=== PATIENT | female | born 1995 | race Caucasian/White ===

== ENCOUNTER 2017-05-25 17:07 | Emergency (ER) | payer SELFPAY ==
[2017-05-25 17:11] VITALS: BP 122/78; PULSE 105; TEMP 100.6; BMI 20.2
--- NOTE | 2017-05-25 17:34 | PDOC ---
History of Present Illness - General Chief Complaint: Urinary Problem Stated Complaint: PAIN, ACUTE History Source: Patient Exam Limitations: No Limitations Past History - Travel Traveled outside of the country in the last 30 days: No Close contact w/someone who was outside of country & ill: No - Past Medical History Allergies/Adverse Reactions: Allergies Allergy/AdvReac Type Severity Reaction Status Date / Time No Known Allergies Allergy Verified 05/25/17 17:11 Home Medications: Ambulatory Orders Iron 1 tab PO TID 07/25/15 Asthma: No Cancer: No Cardiac Disorders: No Diabetes: No HTN: No Seizures: No Thyroid Disease: No - Psycho/Social/Smoking Cessation Hx Anxiety: No Suicidal Ideation: No Smoking History: Never smoked Have you smoked in the past 12 months: No Hx Alcohol Use: No Drug/Substance Use Hx: No Substance Use Type: None Hx Substance Use Treatment: No Review of Systems - Review of Systems Able to Perform ROS?: Yes Is the patient limited Setswana proficient: Yes Constitutional: Yes: Symptoms Reported, See HPI *Physical Exam - Vital Signs Last Vital Signs Temp Pulse Resp BP Pulse Ox 100.6 F H 105 H 20 122/78 99 05/25/17 17:07 05/25/17 17:07 05/25/17 17:07 05/25/17 17:07 05/25/17 17:07
--- NOTE | 2017-05-25 17:40 | PDOC ---
History of Present Illness - General Chief Complaint: Urinary Problem Stated Complaint: PAIN, ACUTE Time Seen by Provider: 05/25/17 17:31 History Source: Patient Exam Limitations: No Limitations - History of Present Illness Initial Comments: 05/25/17 18:05 My chief complaint: Urinary frequency, urgency, chills and painful urination History of present illness: Patient is a 21-year-old female with no significant medical history here today complaining of urinary frequency, urgency, and dysuria with chills, lateral flank pain 4 days. Patient had did not realize that she had a temperature until she came here. She also reports having slight nausea 3 days ago and yesterday. Patient denies any vaginal symptoms. Patient is sexually active with the same partner. Patient is on Depo-Provera. Timing/Duration: getting worse Severity: moderate Associated Symptoms: reports: fever/chills, other (4 days, urinary frequency, urgency, dysuria) Past History - Past Medical History Allergies/Adverse Reactions: Allergies Allergy/AdvReac Type Severity Reaction Status Date / Time No Known Allergies Allergy Verified 05/25/17 17:11 Home Medications: Ambulatory Orders Cephalexin Monohydrate [Keflex -] 500 mg PO Q8H #29 capsule 05/25/17 Asthma: No Cancer: No Cardiac Disorders: No Diabetes: No HTN: No Seizures: No Thyroid Disease: No - Psycho/Social/Smoking Cessation Hx Anxiety: No Suicidal Ideation: No Smoking History: Never smoked Have you smoked in the past 12 months: No Hx Alcohol Use: No Drug/Substance Use Hx: No Substance Use Type: None Hx Substance Use Treatment: No Review of Systems - Review of Systems Is the patient limited Luxembourgish proficient: Yes Constitutional: Yes: Chills, Fever HEENTM: No: Symptoms Reported Respiratory: No: Symptoms reported Cardiac (ROS): No: Symptoms Reported ABD/GI: No: Symptoms Reported : Yes: Dysuria, Frequency, Urgency. No: Discharge, Hematuria, Incontinence Musculoskeletal: Yes: Back Pain (b/l CVA tenderness) *Physical Exam - Vital Signs Last Vital Signs Temp Pulse Resp BP Pulse Ox 100.6 F H 105 H 20 122/78 99 05/25/17 17:07 05/25/17 17:07 05/25/17 17:07 05/25/17 17:07 05/25/17 17:07 - Physical Exam General Appearance: Yes: Appropriately Dressed Respiratory/Chest: positive: Lungs Clear, Normal Breath Sounds. negative: Chest Tender, Respiratory Distress Cardiovascular: positive: Regular Rhythm, Regular Rate, S1, S2 Gastrointestinal/Abdominal: positive: Normal Bowel Sounds, Soft. negative: Tender, Organomegaly, Distended, Guarding, Rebound, Tenderness, Hepatomegaly, Spleenomegaly Musculoskeletal: positive: CVA Tenderness (R), CVA Tenderness (L) Integumentary: positive: Normal Color Neurologic: positive: Alert, Normal Response Medical Decision Making - Medical Decision Making 05/25/17 18:11 Patient is a 21-year-old female with no significant medical history here today complaining of urinary frequency, urgency, and dysuria with chills, lateral flank pain 4 days. Patient had did not realize that she had a temperature until she came here. She also reports having slight nausea 3 days ago and yesterday. Patient denies any vaginal symptoms. Patient is sexually active with the same partner. Patient is on Depo-Provera. Symptoms are most probable due to pyelonephritis. R/O UTI R/O PYELONEPHRITIS PLAN: U/A URINE C & S CHLAMYDIA/GONORRHEA AMPLIFICATION ACETAMINOPHEN 1000MG PO BACTRIM DS ONE TAB NOW THAN BID FOR 14 DAYS 05/25/17 18:54 Laboratory Tests 05/25/17 05/25/17 16:24 17:30 Urine Color Yellow Urine Appearance Slcloudy Urine pH 6.0 Ur Specific [place] Pending Urine Protein Negative Urine Glucose (UA) Negative Urine Ketones Negative Urine Blood 2+ H Urine Nitrite Negative Urine Bilirubin Negative Urine Urobilinogen Negative Ur Leukocyte Esterase 3+ H Urine RBC 20 Urine WBC 98 Ur Epithelial Cells Rare Urine Bacteria Moderate Hyaline Casts 3 Urine Mucus Few Urine HCG, Qual Negative *DC/Admit/Observation/Transfer Diagnosis at time of Disposition: Pyelonephritis - Discharge Dispostion Disposition: HOME Condition at time of disposition: Stable - Patient Instructions Additional Instructions: Follow-up with your primary care provider next week for further evaluation Called the lab line for results of pending labs that were done today Return to emergency room if symptoms worsen or new symptoms develop Take acetaminophen as needed as directed by egg producer for fever or ibuprofen as directed by egg producer for fever or pain Patient voiced understanding of discharge instructions and all questions were answered Thank you for choosing to come to [facility] for your acute medical issues.
[2017-05-25] MEDS ORDERED: ACETAMINOPHEN 500 MG TABLET (FP) PO ONE (17:52)
[2017-05-25 17:54] LABS: URINE APPEARANCE SLCLOUDY; URINE BILIRUBIN NEGATIVE (NEGATIVE); URINE BLOOD 2+ (NEGATIVE); URINE COLOR YELLOW; URINE GLUCOSE (UA) NEGATIVE (NEGATIVE); URINE KETONE NEGATIVE (NEGATIVE); URINE NITRITE NEGATIVE (NEGATIVE); URINE PROTEIN NEGATIVE (NEGATIVE); URINE UROBILINOGEN NEGATIVE mg/dL (0.2-1.0)
[2017-05-25] MEDS ORDERED: ACETAMINOPHEN 500 MG TABLET (FP) ONE (17:57)
[2017-05-25 18:00] LABS: URINE LEUK ESTERASE 3+ (NEGATIVE)
[2017-05-25 18:03] LABS: URINE BACTERIA MODERATE /hpf (NONE SEEN); URINE HYALINE CAST 3 /lpf; URINE MUCUS FEW; URINE RBC 20 /hpf (0-3); URINE WBC 98 /hpf (3-5)
[2017-05-25] MEDS ORDERED: CEPHALEXIN MONOHYDRATE 500 MG CAPSULE (UD) PO ONE (19:01)
[2017-05-25] MEDS ORDERED: CEPHALEXIN MONOHYDRATE 500 MG CAPSULE (UD) ONE (19:03)
== END 2017-05-25 19:17 | disposition home or self-care (01) ==
LOC: JERFT 17:07
DX: N12 Tubulo-interstitial nephritis, not specified as acute or chronic (principal)
CPT/HCPCS: 36415; 81003; 81015; 84703; 87086; 87186; 87491; 87591; 99281-25

== ENCOUNTER 2017-10-28 10:19 | Emergency (ER) | payer SELFPAY ==
[2017-10-28 10:23] VITALS: BP 110/77; TEMP 99.6; BMI 15.2
--- NOTE | 2017-10-28 11:51 | PDOC ---
History of Present Illness - General Chief Complaint: Respiratory Stated Complaint: FLU LIKE SYMPTOMS Time Seen by Provider: 10/28/17 11:42 - History of Present Illness Initial Comments: 10/28/17 11:48 This is a 22-year-old fully immunized female without significant past medical history presents emergency 2 days of fever, dry cough, runny nose, body aches, headache. Patient states "everybody" in the house experiencing similar symptoms. Patient denies any chest pain, shortness of breath, nausea, vomiting, diarrhea. Patient doesn't have a primary care doctor. Past History - Past Medical History Allergies/Adverse Reactions: Allergies Allergy/AdvReac Type Severity Reaction Status Date / Time No Known Allergies Allergy Verified 10/28/17 10:23 Home Medications: Ambulatory Orders Oseltamivir Phosphate [Tamiflu -] 75 mg PO BID #10 capsule 10/28/17 Asthma: No Cancer: No Cardiac Disorders: No COPD: No Diabetes: No HTN: No Seizures: No Thyroid Disease: No Other medical history: MOTHER DENIES MEDICAL HX - Suicide/Smoking/Psychosocial Hx Smoking History: Never smoked Have you smoked in the past 12 months: No Hx Alcohol Use: No Drug/Substance Use Hx: No Substance Use Type: None Hx Substance Use Treatment: No Review of Systems - Review of Systems Able to Perform ROS?: Yes Is the patient limited Puerto Rican proficient: No Constitutional: Yes: See HPI HEENTM: Yes: See HPI Respiratory: Yes: See HPI Cardiac (ROS): No: Symptoms Reported ABD/GI: No: Symptoms Reported : No: Symptoms Reported Musculoskeletal: Yes: See HPI Integumentary: No: Symptoms Reported Neurological: No: Symptoms reported *Physical Exam - Vital Signs Last Vital Signs Temp Pulse Resp BP Pulse Ox 99.6 F 120 H 18 110/77 97 10/28/17 10:21 10/28/17 10:21 10/28/17 10:21 10/28/17 10:21 10/28/17 10:21 - Physical Exam General Appearance: Yes: Appropriately Dressed. No: Apparent Distress HEENT: positive: TMs Normal, Pharyngeal Erythema, Rhinorrhea. negative: Tonsillar Exudate, Tonsillar Erythema, Sinus Tenderness Neck: positive: Trachea midline, Supple Respiratory/Chest: positive: Lungs Clear, Normal Breath Sounds. negative: Respiratory Distress, Accessory Muscle Use Cardiovascular: positive: Regular Rhythm, Tachycardia. negative: Murmur Gastrointestinal/Abdominal: positive: Normal Bowel Sounds, Soft. negative: Tender Musculoskeletal: positive: Normal Inspection. negative: CVA Tenderness Integumentary: positive: Normal Color, Dry, Warm Neurologic: positive: Fully Oriented, Alert, Normal Mood/Affect, Motor Strength 5/5 Medical Decision Making - Medical Decision Making 10/28/17 11:48 A/P: 22-year-old female with 2 days of fevers, headaches, rhinorrhea, body aches. Patient with multiple sick contacts. Oropharynx with pharyngeal erythema no exudates or tonsillar erythema noted. TMs within normal limits. Lungs clear to auscultation bilaterally. S1 and S2 present. No murmur rub or gallop. Diagnosis influenza. I'll treat the patient with Tamiflu 75 mg twice a day for 5 days. I discussed the physical exam findings, ancillary test results and final diagnoses with the patient. I answered all of the patient's questions. The patient was satisfied with the care received and felt comfortable with the discharge plan and treatment plan. The patient will call []within [] hours to arrange follow-up and will return to the Emergency Department with any new, persistant or worsening symptoms. *DC/Admit/Observation/Transfer Diagnosis at time of Disposition: Influenza - Discharge Dispostion Disposition: HOME Condition at time of disposition: Stable Admit: No - Prescriptions Prescriptions: Oseltamivir Phosphate [Tamiflu -] 75 mg PO BID #10 capsule - Referrals Referrals: He Lei MD [Staff Physician] - - Patient Instructions Additional Instructions: Rest, drink lots of fluids: Teas, water, soups, Pedialyte Saltwater gargles Steamy showers/seem to face break up mucus Avoid contact with others until fevers and cough resolved Lots of handwashing and good hygiene Continue [id number] medications for symptomatic relief Tylenol or Motrin for fever and pain Tamiflu 75mg twice a day for 5 days. Followup with private physician in one to 2 days as needed Return to emergency department for worsened symptoms, fevers, dehydration - Post Discharge Activity Forms/Work/School Notes: Back to Work
[2017-10-28 12:06] VITALS: PULSE 10
== END 2017-10-28 12:14 | disposition home or self-care (01) ==
LOC: JERFT 10:19
DX: J11.1 Influenza due to unidentified influenza virus with other respiratory manifestations (principal)
CPT/HCPCS: 99281-25

== ENCOUNTER 2018-01-04 17:39 | Emergency (ER) | payer OTHER ==
[2018-01-04 17:44] VITALS: BP 127/69; PULSE 108; TEMP 98.9; BMI 19.9
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
== END 2018-01-04 18:46 | disposition home or self-care (01) ==
LOC: JERFT 17:39
DX: S00.83XA Contusion of other part of head, initial encounter (principal); Y04.2XXA Assault by strike against or bumped into by another person, initial encounter; Y93.89 Activity, other specified; Y92.89 Other specified places as the place of occurrence of the external cause; Y99.8 Other external cause status; Y07.9 Unspecified perpetrator of maltreatment and neglect
CPT/HCPCS: 99281-25

== ENCOUNTER 2018-04-13 20:48 | Emergency (ER) | payer OTHER ==
[2018-04-13 21:18] VITALS: BP 107/57; PULSE 75; TEMP 98.7; BMI 20.5
--- NOTE | 2018-04-13 22:38 | PDOC ---
History of Present Illness - General Chief Complaint: Urinary Problem Stated Complaint: PAIN Time Seen by Provider: 04/13/18 22:37 Past History - Past Medical History Allergies/Adverse Reactions: Allergies Allergy/AdvReac Type Severity Reaction Status Date / Time No Known Allergies Allergy Verified 01/04/18 17:44 Home Medications: Ambulatory Orders NK [No Known Home Medication] 01/04/18 Asthma: No Cancer: No Cardiac Disorders: No COPD: No Diabetes: No HTN: No Seizures: No Thyroid Disease: No - Suicide/Smoking/Psychosocial Hx Smoking History: Never smoked Have you smoked in the past 12 months: No Information on smoking cessation initiated: No Hx Alcohol Use: No Drug/Substance Use Hx: No Substance Use Type: None Hx Substance Use Treatment: No *Physical Exam - Vital Signs Last Vital Signs Temp Pulse Resp BP Pulse Ox 98.7 F 75 20 107/57 99 04/13/18 21:16 04/13/18 21:16 04/13/18 21:16 04/13/18 21:16 04/13/18 21:16
[2018-04-13] MEDS ORDERED: PHENAZOPYRIDINE HCL 100 MG TABLET (FP) PO ONE (23:07)
--- NOTE | 2018-04-13 23:08 | PDOC ---
History of Present Illness - General Chief Complaint: Urinary Problem Stated Complaint: PAIN Time Seen by Provider: 04/13/18 22:37 History Source: Patient Exam Limitations: No Limitations - History of Present Illness Initial Comments: 04/13/18 23:03 Patient is a 22-year-old female with history of GC chlamydia and past, UTI complaining off UTI symptoms which started about 3 PM today. Patient states she woke up to go to work and had some slight lower abdominal pain on urination. States this pain has progressively worsened, but some frequency and now has blood on the tissue with wiping. Patient states her pain is 6/10 on standing, but when sitting she has no pain. She has had similar symptoms in the past treated for UTI. PMHX: as above PSOCHX: neg etoh, durg, cig ALl: NKDA GENERAL/CONSTITUTIONAL: [No fever or chills. No weakness. No weight change.] HEAD, EYES, EARS, NOSE AND THROAT: [No change in vision. No ear pain or discharge. No sore throat.] CARDIOVASCULAR: [No chest pain or shortness of breath.] RESPIRATORY: [No cough, wheezing, or hemoptysis.] GASTROINTESTINAL: [No nausea, vomiting, diarrhea or constipation. No rectal bleeding.] GENITOURINARY: [No dysuria, frequency, or change in urination.] MUSCULOSKELETAL: [No joint or muscle swelling or pain. No neck or back pain.] SKIN AND BREASTS: [No rash or easy bruising.] NEUROLOGIC: [No headache, vertigo, loss of consciousness, or loss of sensation.] PSYCHIATRIC: [No depression or anxiety.] ENDOCRINE: [No increased thirst. No abnormal weight change.] HEMATOLOGIC/LYMPHATIC: [No anemia, easy bleeding, or history of blood clots.] ALLERGIC/IMMUNOLOGIC: [No hives or skin allergy. No latex allergy.] GENERAL: [The patient is awake, alert, and fully oriented, in mild distress.] HEAD: [Normal with no signs of trauma.] EYES: [Pupils equal, round and reactive to light, extraocular movements intact, sclera anicteric, conjunctiva clear.] ENT: [Ears normal, nares patent, oropharynx clear without exudates. Moist mucous membranes.] NECK: [Normal range of motion, supple without lymphadenopathy, JVD, or masses.] LUNGS: [Breath sounds equal, clear to auscultation bilaterally. No wheezes, and no crackles.] HEART: [Regular rate and rhythm, normal S1 and S2 without murmur, rub.] ABDOMEN: [Soft, nontender, normoactive bowel sounds. No guarding, no rebound. No masses.] EXTREMITIES: [Normal range of motion, no edema. No clubbing or cyanosis. No cords, erythema, or tenderness.] NEUROLOGICAL: [Cranial nerves II through XII grossly intact. Normal speech, normal gait.] PSYCH: [Normal mood, normal affect.] SKIN: [Warm, Dry, normal turgor, no rashes or lesions noted.] Past History - Past Medical History Allergies/Adverse Reactions: Allergies Allergy/AdvReac Type Severity Reaction Status Date / Time No Known Allergies Allergy Verified 01/04/18 17:44 Home Medications: Ambulatory Orders Cephalexin [Keflex] 500 mg PO TID #20 capsule 04/14/18 Phenazopyridine HCl [Pyridium] 100 mg PO TID #6 tablet 04/14/18 Asthma: No Cancer: No Cardiac Disorders: No COPD: No Diabetes: No HTN: No Seizures: No Thyroid Disease: No - Suicide/Smoking/Psychosocial Hx Smoking History: Never smoked Have you smoked in the past 12 months: No Information on smoking cessation initiated: No Hx Alcohol Use: No Drug/Substance Use Hx: No Substance Use Type: None Hx Substance Use Treatment: No *Physical Exam - Vital Signs Last Vital Signs Temp Pulse Resp BP Pulse Ox 98.7 F 75 20 107/57 99 04/13/18 21:16 04/13/18 21:16 04/13/18 21:16 04/13/18 21:16 04/13/18 21:16 Medical Decision Making - Medical Decision Making 04/13/18 23:03 Patient is a 22-year-old female with history of GC chlamydia and past, UTI complaining of UTI symptoms which started about 3 PM today, dysuria, frequency, blood and tissue and wiping. Will send urine for UA and culture, preg test pyridium reassess 04/14/18 00:57 Laboratory Tests 04/14/18 00:15 Urine Color Ltyellow Urine Appearance Slcloudy Urine pH 8.0 D Ur Specific [place] 1.018 Urine Blood 3+ H Ur Leukocyte Esterase 2+ H Urine WBC (Auto) 88 Urine RBC (Auto) 240 Ur Epithelial Cells Rare Urine HCG, Qual Negative (+) UTI given Keflex I discussed the physical exam findings, ancillary test results and final diagnoses with the patient. I answered all of the patient's questions. The patient was satisfied with the care received and felt comfortable with the discharge plan and treatment plan. The Patient agrees to follow up with the primary care physician within 24-72 hours. *DC/Admit/Observation/Transfer Diagnosis at time of Disposition: UTI (urinary tract infection) Qualifiers: Urinary tract infection type: acute cystitis Hematuria presence: with hematuria Qualified Code(s): N30.01 - Acute cystitis with hematuria - Discharge Dispostion Disposition: HOME Condition at time of disposition: Stable - Prescriptions Prescriptions: Cephalexin [Keflex] 500 mg PO TID #20 capsule Phenazopyridine HCl [Pyridium] 100 mg PO TID #6 tablet - Referrals Referrals: [facility] [Provider Group] - Patient Instructions Printed Discharge Instructions: DI for Urinary Tract Infection (UTI) Additional Instructions: Your Discharge Instructions: You must call primary care physician within 24 hours to arrange follow-up. Return to the Emergency Department with any new, persistent or worsening symptoms, for fever, chills, SOB, dizziness or any other concerning changes that may occur. Increase fluid intake, continue Tylenol or Motrin for pain. Take the antibiotics as prescribed - Post Discharge Activity
[2018-04-13] MEDS ORDERED: PHENAZOPYRIDINE HCL 100 MG TABLET (FP) ONE (23:17)
[2018-04-14 00:35] LABS: URINE APPEARANCE SLCLOUDY; URINE BILIRUBIN NEGATIVE (<2.0 mg/dL); URINE COLOR LTYELLOW; URINE GLUCOSE (UA) NEGATIVE (NEGATIVE); URINE KETONE NEGATIVE (NEGATIVE); URINE NITRITE NEGATIVE (NEGATIVE); URINE PROTEIN NEGATIVE (NEGATIVE); URINE UROBILINOGEN NEGATIVE mg/dL (0.2-1.0)
[2018-04-14 00:42] LABS: HCG,QUALITATIVE URINE NEGATIVE; URINE LEUK ESTERASE 2+ (NEGATIVE)
[2018-04-14 00:53] LABS: EPI CELLS RARE /HPF (FEW); URINE BACTERIA RARE /hpf (NONE SEEN); URINE MUCUS RARE
[2018-04-14] MEDS ORDERED: CEPHALEXIN MONOHYDRATE 500 MG CAPSULE (UD) PO ONE (00:54)
[2018-04-14] MEDS ORDERED: CEPHALEXIN MONOHYDRATE 500 MG CAPSULE (UD) ONE (01:10)
== END 2018-04-14 01:24 | disposition home or self-care (01) ==
LOC: JER 20:48
DX: N30.01 Acute cystitis with hematuria (principal); Z86.19 Personal history of other infectious and parasitic diseases
CPT/HCPCS: 81003; 81015; 84703; 87086; 87186; 99281-25

== ENCOUNTER 2019-03-11 12:10 | Emergency (ER) | payer OTHER ==
[2019-03-11 12:38] VITALS: BP 106/71; PULSE 103; TEMP 98.6; BMI 22.6
--- NOTE | 2019-03-11 13:05 | PDOC ---
History of Present Illness - General Chief Complaint: Urinary Problem Stated Complaint: LOCKED JAW Time Seen by Provider: 03/11/19 13:01 History Source: Patient Exam Limitations: No Limitations - History of Present Illness Travel History: No Initial Comments: 03/11/19 13:26 Patient has 2 complaints, #1 concerned about tenderness to her right jaw. States popsjaw frequently but feels did not reduce as her normal and has been painful since Saturday. Was concerned may be her wisdom tooth but has seen a dentist who has an appointment made for extraction. Did not comment on her TMJ and did not think was dislocated. Patient states has still been unable tojob more than a proximally 30% and is continued to be painful. No fever, drainage or abscess to jaw. #2 pain and burning with urine 3 days. States suffers from UTIs frequently and last was in October. Denies fever but states has some mild back pain. Has taken no medications Timing/Duration: reports: getting worse, changing over time Quality: reports: mild, moderate, fullness Abdominal Pain Onset Location: reports: suprapubic Pain Radiation: reports: no radiation Past History - Travel Traveled outside of the country in the last 30 days: No Close contact w/someone who was outside of country & ill: No - Past Medical History Allergies/Adverse Reactions: Allergies Allergy/AdvReac Type Severity Reaction Status Date / Time No Known Allergies Allergy Verified 01/04/18 17:44 Home Medications: Ambulatory Orders Cephalexin Monohydrate [Keflex -] 500 mg PO Q8H #21 capsule 03/11/19 Naproxen [Naprosyn -] 500 mg PO BID #30 tablet 03/11/19 Asthma: No Cancer: No Cardiac Disorders: No COPD: No Diabetes: No HTN: No Seizures: No Thyroid Disease: No - Immunization History Immunization Up to Date: Yes - Suicide/Smoking/Psychosocial Hx Smoking History: Never smoked Have you smoked in the past 12 months: No Information on smoking cessation initiated: No Hx Alcohol Use: No Drug/Substance Use Hx: No Substance Use Type: None Hx Substance Use Treatment: No Review of Systems - Review of Systems Able to Perform ROS?: Yes Is the patient limited Somali proficient: Yes Constitutional: Yes: Symptoms Reported, See HPI, Loss of Appetite, Malaise. No : Chills, Fever HEENTM: No: Symptoms Reported Respiratory: No: Symptoms reported ABD/GI: Yes: Symptoms Reported, See HPI. No: Abdominal Distended, Nausea : Yes: Symptoms Reported, See HPI, Burning, Dysuria, Frequency (x 4 days ) Neurological: Yes: Symptoms reported All Other Systems: Reviewed and Negative *Physical Exam - Vital Signs Last Vital Signs Temp Pulse Resp BP Pulse Ox 98.6 F 103 H 16 106/71 100 03/11/19 12:34 03/11/19 12:34 03/11/19 12:34 03/11/19 12:34 03/11/19 12:34 - Physical Exam General Appearance: Yes: Nourished, Appropriately Dressed, Apparent Distress, Mild Distress HEENT: positive: MANSI, Normal ENT Inspection (to either upper or lower aspect o obvious deformity, crepitus or step-offs. However patient able to only open jaw to approximately 30. No obvious swelling, abscess, or breakthrough of wisdom teeth), TMs Normal. negative: Rhinorrhea Neck: positive: Supple. negative: Tender, Lymphadenopathy (R), Lymphadenopathy (L) Respiratory/Chest: positive: Lungs Clear, Normal Breath Sounds Gastrointestinal/Abdominal: positive: Soft. negative: Tender, Guarding, Rebound Musculoskeletal: positive: Normal Inspection Integumentary: positive: Dry, Warm, Pale Neurologic: positive: communications instructor II-XII NML intact, Fully Oriented, Alert, Normal Mood/ Affect, Normal Response, Motor Strength 5/5 Progress Note - Progress Note Progress Note: #1 TMJ will treat with NSAIDS and encourage Oral Surgery consult for wisdom tooth extraction #2 urinary tract infection, will treat with Keflex *DC/Admit/Observation/Transfer Diagnosis at time of Disposition: UTI (urinary tract infection) Qualifiers: Urinary tract infection type: acute cystitis Hematuria presence: with hematuria Qualified Code(s): N30.01 - Acute cystitis with hematuria TMJ (sprain of temporomandibular joint) Qualifiers: Encounter type: initial encounter Qualified Code(s): S03.40XA - Sprain of jaw, unspecified side, initial encounter - Discharge Dispostion Disposition: HOME Condition at time of disposition: Stable Decision to Admit order: No - Prescriptions Prescriptions: Cephalexin Monohydrate [Keflex -] 500 mg PO Q8H #21 capsule Naproxen [Naprosyn -] 500 mg PO BID #30 tablet - Referrals Referrals: Moe Beverly MD., [Staff Physician] - - Patient Instructions Printed Discharge Instructions: DI for Urinary Tract Infection (UTI) Additional Instructions: Rest, drink lots of fluids: Teas, water, soups Saltwater gargles/ keep mouth clean and rinse after each meal May use wet teabag for pain relief to area Avoid hard chewing foods, stick to ice cream, Jell-O, yogurt etc. Tylenol or Motrin for fever and pain Complete all medication as prescribed Seek dental appointment as soon as possible for evaluation of dental injury/pain Followup with private physician in one to 2 days as needed Return to emergency department for worsened symptoms, fevers, swelling to face or worsened pain Rest, drink lots of fluids: Teas, water, soups Avoid contact with others until fevers and symptoms resolved Lots of handwashing and good hygiene Continue [id number] medications for symptomatic relief Tylenol or Motrin for fever and pain Continue all of antibiotics until completed Followup with private physician in one week for repeat urinalysis/reevaluation Return to emergency department for worsened symptoms, fevers, dehydration - Post Discharge Activity Forms/Work/School Notes: Back to Work
[2019-03-11 13:21] LABS: EPI CELLS 5.5 /HPF (0-5/HPF); HYALINE CASTS 4 /lpf (0-8); URINE APPEARANCE CLOUDY; URINE BACTERIA 1810.1 /hpf (NEGATIVE); URINE BILIRUBIN NEGATIVE (NEGATIVE); URINE COLOR YELLOW; URINE GLUCOSE (UA) NEGATIVE (NEGATIVE); URINE KETONE NEGATIVE (NEGATIVE); URINE LEUK ESTERASE 3+ (NEGATIVE); URINE NITRITE POSITIVE (NEGATIVE); URINE PROTEIN NEGATIVE (NEGATIVE); URINE RBC 6 /hpf (0-4); URINE WBC 373 /hpf (0-5)
[2019-03-11 13:22] LABS: HCG,QUALITATIVE URINE Negative
== END 2019-03-11 14:07 | disposition home or self-care (01) ==
LOC: JERFT 12:10
DX: S03.40XA Sprain of jaw, unspecified side, initial encounter (principal); N30.01 Acute cystitis with hematuria; X58.XXXA Exposure to other specified factors, initial encounter; Y93.89 Activity, other specified; Y92.89 Other specified places as the place of occurrence of the external cause
CPT/HCPCS: 70110-TC-FY; 81003; 84703; 87086; 87186; 99282-25

== ENCOUNTER 2019-03-28 05:24 | Emergency (ER) | payer OTHER ==
[2019-03-28 06:19] VITALS: BP 112/77; PULSE 79; TEMP 98.4; BMI 25.4
[2019-03-28] MEDS ORDERED: ACETAMINOPHEN 325 MG TABLET (FP) PO ONE (06:24)
--- NOTE | 2019-03-28 06:25 | PDOC ---
History of Present Illness - General Chief Complaint: Bone Injury Stated Complaint: ANKLE PAIN Time Seen by Provider: 03/28/19 06:18 - History of Present Illness Initial Comments: 03/28/19 06:20 23 yo F with no significant pmh who p/w left ankle pain. Patient reports stepping in "pothole," at 1100 PM ( 03/27/19) and "rolling" her left ankle inward, with absent fall, LOC, head/neck/back trauma. Reports limping gait and sharp pain with wt. bearing at left ankle following event. Patient denies BUTT, vision change, palpitations, cough, wheezing, orthopena, PND , N/V, F,C, CP, SOB, urinary complaints, hematuria, BPR, abdominal pain, diarrhea, constipation, lightheadedness, weakness, sensory changes. PMHx: as noted above ROS: as noted SHx: Denies Etoh, IVDA, tobacco use Allergies: NKDA Past History - Past Medical History Allergies/Adverse Reactions: Allergies Allergy/AdvReac Type Severity Reaction Status Date / Time No Known Allergies Allergy Verified 01/04/18 17:44 Home Medications: Ambulatory Orders Cephalexin Monohydrate [Keflex -] 500 mg PO Q8H #21 capsule 03/11/19 Naproxen [Naprosyn -] 500 mg PO BID #30 tablet 03/11/19 Asthma: No Cancer: No Cardiac Disorders: No COPD: No Diabetes: No HTN: No Seizures: No Thyroid Disease: No - Immunization History Immunization Up to Date: Yes - Suicide/Smoking/Psychosocial Hx Smoking History: Never smoked Have you smoked in the past 12 months: No Information on smoking cessation initiated: No Hx Alcohol Use: No Drug/Substance Use Hx: No Substance Use Type: None Hx Substance Use Treatment: No Review of Systems - Review of Systems Comments:: 03/28/19 06:23 GENERAL/CONSTITUTIONAL: No fever or chills. No weakness. HEAD, EYES, EARS, NOSE AND THROAT: No change in vision. No ear pain or discharge. No sore throat. CARDIOVASCULAR: No chest pain or shortness of breath RESPIRATORY: No cough, wheezing, or hemoptysis. GASTROINTESTINAL: No nausea, vomiting, diarrhea or constipation. GENITOURINARY: No dysuria, frequency, or change in urination. MUSCULOSKELETAL: + Ankle pain. No neck or back pain. SKIN: No rash NEUROLOGIC: No headache, vertigo, loss of consciousness, or change in strength/ sensation. ENDOCRINE: No increased thirst. No abnormal weight change HEMATOLOGIC/LYMPHATIC: No anemia, easy bleeding, or history of blood clots. ALLERGIC/IMMUNOLOGIC: No hives or skin allergy. *Physical Exam - Vital Signs Last Vital Signs Temp Pulse Resp BP Pulse Ox 98.4 F 79 18 112/77 97 03/28/19 05:25 03/28/19 05:25 03/28/19 05:25 03/28/19 05:25 03/28/19 05:25 - Physical Exam Comments: 03/28/19 06:23 GENERAL: Awake, alert, and fully oriented, in no acute distress HEAD: No signs of trauma, normocephalic, atraumatic EYES: PERRLA, EOMI, sclera anicteric, conjunctiva clear ENT: Auricles normal inspection, hearing grossly normal, nares patent, oropharynx clear without exudates. Moist mucosa NECK: Normal ROM, supple, no lymphadenopathy, JVD, or masses LUNGS: No distress, speaks full sentences, clear to auscultation bilaterally HEART: Regular rate and rhythm, normal S1 and S2, no murmurs, rubs or gallops, peripheral pulses normal and equal bilaterally. ABDOMEN: Soft, nontender, normoactive bowel sounds. No guarding, no rebound. No masses EXTREMITIES : + LLE with ttp at lateral malleolus and dorsal forefoot at base of 5th metatarsal. Pain with passive and active ROM at left ankle. Otherwise Normal inspection, Normal range of motion, no edema. No clubbing or cyanosis. 2 + Peripheral pulses symmetric throughout. NEUROLOGICAL: Cranial nerves II through XII grossly intact. Normal speech, no focal sensorimotor deficits SKIN: Warm, Dry, normal turgor, no rashes or lesions noted Medical Decision Making - Medical Decision Making 03/28/19 06:26 23 yo F with no significant pmh who p/w ankle pain s/p foot inversion (03/27/19) . Vitals wnl, AF, A&Ox3. Physical exam notable for + LLE with ttp at lateral malleolus and dorsal forefoot at base of 5th metatarsal. Pain with passive and active ROM at left ankle. RLE neurovascularly intact. Ankle RAD r/o fracture/ dislocation vs. ankle sprain/strain. Provide analgesic control and reassess. ED Course: *DC/Admit/Observation/Transfer Diagnosis at time of Disposition: Ankle pain Qualifiers: Chronicity: acute Laterality: left Qualified Code(s): M25.572 - Pain in left ankle and joints of left foot - Discharge Dispostion Condition at time of disposition: Stable Decision to Admit order: No - Referrals - Patient Instructions Printed Discharge Instructions: DI for Ankle Sprain Additional Instructions: Please return to the emergency department with any new or worsening symptoms or concerns. Please follow up with your primary care physician within 72 hours. Can take Motrin 600 mg every 6-8 hours as needed for pain. Recommend Rest, Ice, Compression, and Elevation of affected extremity. - Post Discharge Activity
[2019-03-28] MEDS ORDERED: ACETAMINOPHEN 325 MG TABLET (FP) ONE (06:38)
--- NOTE | 2019-03-28 07:01 | PDOC ---
Attending Attestation - Resident Resident Name: Jarred Sal - ED Attending Attestation I have performed the following: I have examined & evaluated the patient, The case was reviewed & discussed with the resident, I agree w/resident's findings & plan - HPI HPI: 03/28/19 07:00 Pt stepped in a pothole last night at 11PM and she has lat ankle pain. - Physicial Exam PE: 03/28/19 07:00 Agree with resident exam - Medical Decision Making 03/28/19 07:00 Pt will be signed out to the day doctor.
--- NOTE | 2019-03-28 08:05 | PDOC ---
*Physical Exam - Vital Signs Last Vital Signs Temp Pulse Resp BP Pulse Ox 98.4 F 79 18 112/77 97 03/28/19 05:25 03/28/19 05:25 03/28/19 05:25 03/28/19 05:25 03/28/19 05:25 - Physical Exam General Appearance: Yes: Nourished, Appropriately Dressed Extremity: positive: Normal Capillary Refill, Normal Inspection, Other (LLE: lateral malleolus TTP, 2+ DP pulse) Neurologic: positive: manager valuation II-XII NML intact, Fully Oriented, Alert ED Treatment Course - Medications Given in the ED: ED Medications Discontinued Medications Generic Name Dose Route Start Last Admin Trade Name Freq PRN Reason Stop Dose Admin Acetaminophen 650 mg 03/28/19 06:24 03/28/19 06:40 Tylenol - PO 03/28/19 06:25 650 mg ONCE ONE Administration Medical Decision Making - Medical Decision Making 03/28/19 08:06 Patient signed out by Dr. Sal @ 0700 w/Dr. Rodarte (Attending) 23 year old female s/p ankle inversion around 11 p.m. yesterday evening. No head trauma/LOC. Reports antalgic gait. Evaluated @ bedside, resting comfortably, pain well controlled w/Tylenol. L lateral malleolus TTP on PE. 03/28/19 09:04 Foot/ankle XR negative Patient ambulatory around ED Will discharge home with supportive care, NSAID for analgesia. *DC/Admit/Observation/Transfer Diagnosis at time of Disposition: Ankle sprain - Discharge Dispostion Disposition: HOME Condition at time of disposition: Stable Decision to Admit order: No - Referrals - Patient Instructions Printed Discharge Instructions: DI for Ankle Sprain Additional Instructions: Please return to the emergency department with any new or worsening symptoms or concerns. Please follow up with your primary care physician within 72 hours. You can take Motrin 600 mg every 6-8 hours as needed for pain for the next 3 days. We have provided discharge instructions including Rest, Ice, Compression , and Elevation of your foot. - Post Discharge Activity
== END 2019-03-28 10:07 | disposition home or self-care (01) ==
LOC: JER 05:24
DX: M25.572 Pain in left ankle and joints of left foot (principal); X50.1XXA Overexertion from prolonged static or awkward postures, initial encounter; Y93.01 Activity, walking, marching and hiking; Y92.414 Local residential or business street as the place of occurrence of the external cause; Y99.8 Other external cause status
CPT/HCPCS: 73610-TC-LT-FY; 73630-TC-LT; 99285-25

== ENCOUNTER 2020-10-25 13:49 | Emergency (ER) | payer OTHER ==
[2020-10-25 14:03] VITALS: BMI 24.4
[2020-10-25 16:47] LABS: BASO % 0.7 % (0-2.0); EOS % 1.6 % (0-4.5); HEMATOCRIT 40.7 % (32.4-45.2); HEMOGLOBIN 13.7 GM/dL (10.7-15.3); LYMPH % 34.9 % (8-40); MCHC 33.7 g/dl (32.0-36.0); MEAN PLT VOLUME 8.7 fl (7.5-11.1); MONO % 6.7 % (3.8-10.2); NEUT % 56.1 % (42.8-82.8); PLATELET COUNT 298 K/MM3 (134-434); RBC 4.73 M/mm3 (3.60-5.2); RDW 12.7 % (11.6-15.6); WHITE BLOOD COUNT 8.4 K/mm3 (4.0-10.0)
[2020-10-25 17:09] LABS: CHLORIDE 106 mmol/L (98-107); POTASSIUM 4.1 mmol/L (3.5-5.1); SODIUM 141 mmol/L (136-145)
[2020-10-25 17:10] LABS: BLOOD UREA NITROGEN 12.4 mg/dL (7-18); CALCIUM 9.3 mg/dL (8.5-10.1)
[2020-10-25 17:11] LABS: ANION GAP 10 MMOL/L (8-16); CO2 26 mmol/L (21-32); GLUCOSE,RANDOM 69 mg/dL (74-106)
[2020-10-25 17:13] LABS: SGPT/ALT 28 U/L (13-61)
[2020-10-25 17:14] LABS: CREATININE 0.8 mg/dL (0.55-1.3); SGOT/AST 17 U/L (15-37)
[2020-10-25 17:15] LABS: BILIRUBIN,TOTAL 0.4 mg/dL (0.2-1); TOT PROT 8.3 g/dl (6.4-8.2)
[2020-10-25 17:16] LABS: ALK PHOS 89 U/L (45-117)
[2020-10-25 17:45] LABS: EPI CELLS 33 /uL (0-25.1); HYALINE CASTS 4 /uL (0-3.1); URINE APPEARANCE CLOUDY; URINE BACTERIA >9,000 /uL (0-1359); URINE BILIRUBIN NEGATIVE (NEGATIVE); URINE COLOR YELLOW; URINE GLUCOSE (UA) NEGATIVE (NEGATIVE); URINE KETONE TRACE (NEGATIVE); URINE LEUK ESTERASE NEGATIVE (NEGATIVE); URINE NITRITE POSITIVE (NEGATIVE); URINE PROTEIN NEGATIVE (NEGATIVE); URINE RBC 24 /uL (0-23.9); URINE WBC 30 /uL (0-25.8)
[2020-10-25] MEDS ORDERED: SODIUM CHLORIDE 1,000 ML IV STA (17:56)
[2020-10-25 20:48] VITALS: BP 118/78; PULSE 82
== END 2020-10-25 20:49 | disposition home or self-care (01) ==
LOC: JER 13:49
PROC: 3E0337Z Introduction of Electrolytic and Water Balance Substance into Peripheral Vein, Percutaneous Approach (ICD-10-PCS; principal; 2020-10-25)
DX: N93.8 Other specified abnormal uterine and vaginal bleeding (principal); R42 Dizziness and giddiness
CPT/HCPCS: 36415; 80053; 81003; 84484; 84702; 85025; 86850; 86900; 86901; 87086; 87186; 93005; 93010; 99284-25

== ENCOUNTER 2022-01-25 21:54 | Emergency (ER) | payer OTHER ==
[2022-01-25 22:15] VITALS: BP 110/71; PULSE 103; TEMP 98; BMI 26.4
[2022-01-25] MEDS ORDERED: IBUPROFEN 600 MG TABLET (FP) PO ONE ×2 (23:32→23:36)
== END 2022-01-25 23:40 | disposition home or self-care (01) ==
LOC: JER 21:54
DX: S61.305A Unspecified open wound of left ring finger with damage to nail, initial encounter (principal); Y93.83 Activity, rough housing and horseplay; Z20.2 Contact with and (suspected) exposure to infections with a predominantly sexual mode of transmission
CPT/HCPCS: 36415; 84703; 87491; 87591; 99283-25

== ENCOUNTER 2023-12-02 10:20 | Emergency (ER) | payer OTHER ==
[2023-12-02 10:24] VITALS: BP 129/89; PULSE 93; RESP 18; TEMP 97.1; BMI 24.4
[2023-12-02] MEDS ORDERED: LIDOCAINE 4% PATCH TP ONE (10:56)
[2023-12-02] MEDS ORDERED: ACETAMINOPHEN 325 MG TABLET (FP) ONE (10:56)
[2023-12-02] MEDS: LIDOCAINE 4% PATCH TP ONE (10:59)
[2023-12-02] MEDS: ACETAMINOPHEN 325 MG TABLET (FP) PO ONE (10:59)
[2023-12-02] MEDS ORDERED: KETOROLAC TROMETHAMINE 60 MG/2 ML VIAL ONE (11:56)
[2023-12-02] MEDS: KETOROLAC TROMETHAMINE 60 MG/2 ML VIAL IM ONE (11:59)
[2023-12-02] MEDS ORDERED: LIDOCAINE PATCH REMOVAL MC SCH (22:00)
== END 2023-12-02 14:42 | disposition home or self-care (01) ==
LOC: JERFT 10:20
PROC: 3E0233Z Introduction of Anti-inflammatory into Muscle, Percutaneous Approach (ICD-10-PCS; principal; 2023-12-02)
DX: S13.9XXA Sprain of joints and ligaments of unspecified parts of neck, initial encounter (principal); X50.9XXA Other and unspecified overexertion or strenuous movements or postures, initial encounter
CPT/HCPCS: 84703; 99284-25

== ENCOUNTER 2025-02-25 07:07 | Emergency (ER) | payer OTHER ==
[2025-02-25 07:15] VITALS: BP 117/88; PULSE 83; RESP 18; TEMP 98.6; BMI 26.2
[2025-02-25] MEDS ORDERED: MAG HYDROX/AL HYDROX/SIMETH 30 ML UNIT-DOSE CUP ONE (08:03)
[2025-02-25] MEDS ORDERED: ACETAMINOPHEN 325 MG TABLET (FP) ONE (08:03)
[2025-02-25] MEDS ORDERED: FAMOTIDINE 20 MG TABLET ONE (08:03)
[2025-02-25 08:48] LABS: EPI CELLS >36 /uL (0-25.1); HYALINE CASTS 1 /uL (0-3.1); URINE APPEARANCE CLEAR; URINE BACTERIA 227 /uL (0-1359); URINE BILIRUBIN NEGATIVE (NEGATIVE); URINE COLOR YELLOW; URINE GLUCOSE (UA) NEGATIVE (NEGATIVE); URINE KETONE TRACE (NEGATIVE); URINE LEUK ESTERASE TRACE (NEGATIVE); URINE NITRITE NEGATIVE (NEGATIVE); URINE PROTEIN TRACE (NEGATIVE); URINE RBC 35 /uL (0-23.9); URINE WBC 13 /uL (0-25.8)
[2025-02-25 08:49] LABS: HCG,QUALITATIVE URINE Negative
[2025-02-25] MEDS: MAG HYDROX/AL HYDROX/SIMETH 30 ML UNIT-DOSE CUP PO ONE (09:00)
[2025-02-25] MEDS: ACETAMINOPHEN 325 MG TABLET (FP) PO ONE (09:00)
[2025-02-25] MEDS: FAMOTIDINE 20 MG TABLET PO ONE (09:00)
== END 2025-02-25 10:01 | disposition home or self-care (01) ==
LOC: JER 07:07
DX: N89.8 Other specified noninflammatory disorders of vagina (principal); R10.9 Unspecified abdominal pain; A59.9 Trichomoniasis, unspecified
CPT/HCPCS: 36415; 81003; 84703; 87086; 87491; 87591; 87661; 99283-25